=== PATIENT | female | born 2000 | race Caucasian/White ===

== ENCOUNTER → 2022-01-18 13:10 | Outpatient (CLI) | payer OTHER, SELFPAY | PROVIDERS: Visit Provider Obstetrics & Gynecology | DX: N39.0 Urinary tract infection, site not specified (principal); B96.20 Unspecified Escherichia coli [E. coli] as the cause of diseases classified elsewhere | CPT/HCPCS: 87086; 87088; 87186 ==

== ENCOUNTER 2022-03-14 03:57 | Emergency (ER) | payer OTHER, SELFPAY ==
[2022-03-14 04:00] VITALS: BP 138/84; PULSE 71; RESP 16; TEMP 36.9; O2SAT 98; BMI 34.7
--- NOTE | 2022-03-14 04:10 | ECG_ITS ---
APPROVED REPORT Exam: Resting ECG HR:70 bpm ECG Measurements Heart Rate 70 AXES WA 153 P 3 QRSd 73 QRS 61 QT 363 T 52 QTc 384 Conclusion SINUS RHYTHM WITH SINUS ARRHYTHMIA NORMAL ECG UNCONFIRMED REPORT Electronically signed by : Alonso Fiore MD 03/14/2022 17:47:18
[2022-03-14 04:16] VITALS: BMI 36.2
[2022-03-14 04:16] LABS: Microscopic, Urine URINE MICROSCOPIC (MICROSCOPIC)
[2022-03-14 04:18] LABS: Appearance,Urine CLOUDY (Clear); Bilirubin,Urine Negative (Negative); Blood, Urine Negative (Negative); Color,Urine YELLOW (Yellow); Glucose,Urine (UA) Negative (Negative); Ketones,Urine Negative (Negative); Leukocyte Esterase,Urine Negative (Negative); Nitrate,Urine Negative (Negative); POC Glucose,Bedside 107 (70-110); Protein,Urine Negative (Negative); Specific Gravity, Urine >= 1.030 (1.005-1.030); Urobilinogen,Urine 0.2 EU/dl (0.2)
[2022-03-14 04:20] LABS: Coronavirus 19, PCR Not Detected (NotDetected); Influenza A, PCR Not Detected (NotDetected); Influenza B, PCR Not Detected (NotDetected)
--- NOTE | 2022-03-14 04:26 | CT_ITS ---
PROCEDURE INFORMATION: Exam: CT Head Without Contrast Exam date and time: 03/14/2022 4:39 AM Age: 21 years old Clinical indication: Injury or trauma; Fall; Blunt trauma (contusions or hematomas); Without loss of consciousness; Additional info: Fall hit back of head TECHNIQUE: Imaging protocol: Computed tomography of the head without contrast. Radiation optimization: All CT scans at this facility use at least one of these dose optimization techniques: automated exposure control; mA and/or kV adjustment per patient size (includes targeted exams where dose is matched to clinical indication); or iterative reconstruction. COMPARISON: No relevant prior studies available. FINDINGS: Brain: Normal. No hemorrhage. Unremarkable white matter. No mass effect. Cerebral ventricles: No ventriculomegaly. Paranasal sinuses: Visualized sinuses are unremarkable. No fluid levels. Mastoid air cells: Visualized mastoid air cells are well aerated. Bones/joints: Unremarkable. No acute fracture. Soft tissues: Unremarkable. IMPRESSION: No acute intracranial process.
[2022-03-14 04:27] LABS: Amorphous Sediment,Urine Trace /lpf; Squamous Epithelial Cell,Urine 50-100 #/hpf (0-5); Urine Pregnancy, HCG Qual. Negative (Negative); WBC,Urine Occasional #/hpf (0-3)
[2022-03-14 04:31] LABS: Basophils # 0.1 K/mm3 (0-0.2); Basophils % 1.6 % (0.1-2.0); Eosinophils # 0.3 K/mm3 (0.0-0.4); Eosinophils % 3.6 % (0.1-12.0); Hematocrit 43.8 % (37.0-47.0); Hemoglobin 15.2 g/dL (12.2-16.2); Lymphocytes # 2.1 K/mm3 (0.7-4.5); Mean Corpuscular HGB Conc 34.6 g/dL (31.8-35.4); Mean Corpuscular Hemoglobin 30.4 pg (27.0-31.2); Mean Corpuscular Volume 87.6 fl (81-99); Mean Platelet Volume 8.4 fl (7.4-10.4); Monocytes # 0.4 K/mm3 (0.1-1.0); Monocytes % 6.2 % (1.7-9.3); Neutrophils # 4.2 K/mm3 (1.8-7.8); Neutrophils % 58.6 % (37.0-80.0); Platelet Count 348 K/mm3 (142-424); Red Cell Distribution Width 13.6 % (11.5-17.5); White Blood Count 7.1 K/mm3 (4.5-13.0)
[2022-03-14 04:36] LABS: Barbiturates Screen,Urine Negative ng/ml (<200)
[2022-03-14 04:37] LABS: Benzodiazepines Screen,Urine Negative ng/ml (<200)
[2022-03-14 04:38] LABS: Amphetamine/Metha Screen,Urine Negative ng/ml (<1000); Cannabinoid Screen,Urine Positive ng/ml (<50)
[2022-03-14 04:38] LABS: Chloride 107 mmol/L (98-107)
[2022-03-14 04:39] LABS: Potassium 3.8 mmoL/L (3.5-5.1); Sodium 140 mmol/L (136-145)
[2022-03-14 04:39] LABS: Cocaine Screen,Urine Negative ng/ml (<300); Methadone Screen,Urine Negative ng/ml (<300)
[2022-03-14 04:40] LABS: Opiate Screen,Urine Negative ng/ml (<300)
--- NOTE | 2022-03-14 04:40 | HMH.EDWEAK ---
ED Disposition Clinical Impression: Weakness Fall Qualifiers: Encounter type: initial encounter Qualified Code(s): W19.XXXA - Unspecified fall, initial encounter Disposition: Home, Self-Care Condition on Discharge: Good Instructions: DI for Headache Additional Instructions: see pcp for follow up Referrals: Shaggy Umanzor MD [Primary Care Provider] - - Critical Care Critical Care Time: No Attestation: On 03/14/22, the high probability of a clinically significant, sudden or life threatening deterioration of the following system(s) required my full and direct attention, intervention and personal management. The time I documented below is in addition to time spent performing reported procedures but includes the following listed in this critical care notation. Medical Decision Making - Medical Records Medical records reviewed: Yes: I reviewed the patient's medical records. - Ian Inquiry Pt receiving controlled substance: No Vital Signs: 03/14/22 04:00 Temperature 98.5 F Temperature Source Oral Pulse Rate [Left] 71 Respiratory Rate 16 Blood Pressure [Right Arm] 138/84 Blood Pressure Mean [Right Arm] 102 02 Sat by Pulse Oximetry 98 Oxygen Delivery Method Room Air - Lab Data Lab results reviewed: Yes: I reviewed the patient's lab results. Lab Results 03/14/22 04:07: Urine Color Yellow, Urine Appearance Cloudy, Urine pH 5.0, Ur Specific Isabella >= 1.030, Urine Protein Negative, Urine Glucose (UA) Negative, Urine Ketones Negative, Urine Blood Negative, Urine Nitrate Negative, Urine Bilirubin Negative, Urine Urobilinogen 0.2, Ur Leukocyte Esterase Negative, Urine WBC Occasional, Ur Squamous Epith Cells 50-100, Amorphous Sediment Trace 03/14/22 04:07: Urine HCG, Qual Negative 03/14/22 04:07: POC Glucose 107 03/14/22 04:07: Urine Opiates Screen Negative, Urine Methadone Screen Negative, Ur Barbituates Screen Negative, Ur Phencyclidine Scrn Negative, Ur Amphetamines Screen Negative, U Benzodiazepines Scrn Negative, Urine Cocaine Screen Negative, U Marijuana (THC) Screen Positive H 03/14/22 04:15: SARS-CoV-2 (PCR) Not detected, Influenza A Untype (PCR) Not detected, Influenza Type B (PCR) Not detected 03/14/22 04:16: WBC 7.1, RBC 5.00, Hgb 15.2, Hct 43.8, MCV 87.6, MCH 30.4, MCHC 34.6, RDW 13.6, Plt Count 348, MPV 8.4, Neut % (Auto) 58.6, Lymph % (Auto) 30.0, Forrest % (Auto) 6.2, Eos % (Auto) 3.6, Baso % (Auto) 1.6, Neut # (Auto) 4.2, Lymph # (Auto) 2.1, Forrest # (Auto) 0.4, Eos # (Auto) 0.3, Baso # (Auto) 0.1 03/14/22 04:16: Sodium 140, Potassium 3.8, Chloride 107, Carbon Dioxide 20 L, Anion Gap 16.8 H, BUN 8, Creatinine 0.90, Estimated Creat Clear 143, Estimated GFR 81, Est GFR ( Amer) 98, Glucose 113 H, Calcium 9.9, Total Bilirubin 0.5, AST 26, ALT 23, Alkaline Phosphatase 79, Total Protein 8.0, Albumin 5.0, Globulin 3.0, Albumin/Globulin Ratio 1.7, Amylase 81 03/14/22 04:16: Lactate 2.8 H 03/14/22 04:16: Lipase 192, Procalcitonin 0.043 03/14/22 04:16: Plasma/Serum Alcohol 25 H Result diagrams: 03/14/22 04:16 03/14/22 04:16 Orders (Tests/Meds): ORDERS Category Date Time Status ESR [Erythrocyte Sedimentation Rate] Stat Lab 03/14/22 04:16 Received - Radiology Data #1 Image(s): Chest, Pelvis Image Reviewed: Yes I have reviewed radiologist's interpretation Preliminary Findings: No Fracture Seen - CT Data CT Scan: Head, C-Spine Time Received: 05:[address] Reviewed: Yes: I have viewed the radiologist's interpretation Preliminary Findings: No Fracture Seen - ECG Data Tracing #1 Normal Sinus Rhythm: Yes Ischemic changes: non-specific ST-T wave changes Medical Decision Narrative: uncertain as to cause of episode but stable exam and labs Weakness HPI - General Chief complaint: Weakness Stated complaint: BERMUDEZ, legs and feet going numb Time Seen by Provider: 03/14/22 04:15 Mode of Arrival: Wheelchair Source of Information: Patient, Medical Record Limitations: No Limitations
[2022-03-14 04:41] LABS: Phencyclidine Screen,Urine Negative ng/ml (<25)
[2022-03-14 04:41] LABS: Amylase 81 U/L (30-110); Anion Gap 16.8 mEq/L (5-15); Blood Urea Nitrogen 8 mg/dl (7-17); Carbon Dioxide 20 mmol/L (22.0-30.0); Creatinine Clearance Estimated 143 mL/min (50-200); Estimated Glomerular Filt Rate 81 ml/min (>60); GFR (African American) 98 ML/MIN (>60); Lactic Acid 2.8 mmol/L (0.7-2.1); Lipase 192 U/L (23-300)
[2022-03-14 04:42] LABS: Alanine Aminotransferase 23 U/L (12-78); Albumin/Globulin Ratio 1.7 (1.1-1.8); Alkaline Phosphatase 79 U/L (38-126); Aspartate Amino Transferase 26 U/L (14-36); Bilirubin,Total 0.5 mg/dl (0.2-1.3); Calcium 9.9 mg/dl (8.4-10.2); Glucose 113 mg/dl (74-100)
--- NOTE | 2022-03-14 04:42 | XR_ITS ---
PROCEDURE INFORMATION: Exam: XR Pelvis Exam date and time: 03/14/2022 4:41 AM Age: 21 years old Clinical indication: Injury or trauma; Fall; Blunt trauma (contusions or hematomas); Bilateral; Pelvic region; Additional info: Fall trauma protocols TECHNIQUE: Imaging protocol: XR pelvis. Views: 1 or 2 view. COMPARISON: No relevant prior studies available. FINDINGS: Bones/joints: Unremarkable. No acute fracture. Soft tissues: Unremarkable. IMPRESSION: No acute findings.
--- NOTE | 2022-03-14 04:42 | CT_ITS ---
PROCEDURE INFORMATION: Exam: CT Cervical Spine Without Contrast Exam date and time: 03/14/2022 4:43 AM Age: 21 years old Clinical indication: Injury or trauma; Fall; Blunt trauma; Injury details: Fell hit back of head TECHNIQUE: Imaging protocol: Computed tomography images of the cervical spine without contrast. Radiation optimization: All CT scans at this facility use at least one of these dose optimization techniques: automated exposure control; mA and/or kV adjustment per patient size (includes targeted exams where dose is matched to clinical indication); or iterative reconstruction. COMPARISON: CT HEAD/BRAIN WO CON 03/14/2022 4:39 AM FINDINGS: Bones/joints: No acute fracture. Normal alignment. Discs/Spinal canal/Neural foramina: No significant disc protrusion. No severe spinal canal stenosis. No significant neural foraminal narrowing. Lungs: Lung apices are normal. Soft tissues: Unremarkable. IMPRESSION: No acute process. No acute fracture or dislocation.
--- NOTE | 2022-03-14 04:42 | XR_ITS ---
PROCEDURE INFORMATION: Exam: XR Chest Exam date and time: 03/14/2022 4:42 AM Age: 21 years old Clinical indication: Injury or trauma; Fall; Blunt trauma (contusions or hematomas); Patient HX: Fell hit back of head; Additional info: Fall trauma protocols TECHNIQUE: Imaging protocol: XR of the chest. Views: 4 or more views. COMPARISON: No relevant prior studies available. FINDINGS: Lungs: Unremarkable. No consolidation. Pleural spaces: Unremarkable. No pleural effusion. No pneumothorax. Heart/Mediastinum: Unremarkable. No cardiomegaly. Bones/joints: Unremarkable. IMPRESSION: No acute findings.
[2022-03-14 04:52] LABS: Ethyl Alcohol 25 mg/dl (0-10)
[2022-03-14 04:59] LABS: Procalcitonin 0.043 ng/mL (0.0-2.0)
[2022-03-14 05:26] VITALS: BP 138/64; PULSE 78; RESP 14; TEMP 36.9; O2SAT 98
[2022-03-14 05:28] LABS: Erythrocyte Sedimentation Rate 16 mm/hr (0-20)
[2022-03-14 08:22] LABS: Reflex Lactic Add Lactic Reflex
== END 2022-03-14 05:56 | disposition home or self-care (01) ==
PROVIDERS: Emergency Provider Emergency Medicine; PCP Emergency Medicine
DX: R53.83 Other fatigue (principal); R20.2 Paresthesia of skin; R51.9 Headache, unspecified; W19.XXXA Unspecified fall, initial encounter; Y92.009 Unspecified place in unspecified non-institutional (private) residence as the place of occurrence of the external cause
CPT/HCPCS: 70450; 71045; 72125; 72170; 80053; 80305; 81001; 81025; 82150; 82962; 83605; 83690; 84145; 85025; 85651; 93005; 99284; C9803; U0003; U0005

== ENCOUNTER 2022-09-13 13:48 | Emergency (ER) | payer OTHER, SELFPAY ==
[2022-09-13 14:30] VITALS: BP 112/76; PULSE 78; RESP 18; TEMP 37.2; O2SAT 98; BMI 31.1
[2022-09-13 14:42] LABS: UTC Strep Screen (Rapid) Negative (Negative)
[2022-09-13 14:43] LABS: UTC Influenza A Antigen Negative (Negative); UTC Influenza B Antigen Negative (Negative)
--- NOTE | 2022-09-13 14:45 | EXP.UTC ---
Discharge Plan Disposition Patient Disposition: Home, Self-Care Condition: Good Prescriptions Prescriptions: No Action No Known Home Medications Referrals Follow up/Referrals: Shaggy Umanzor MD [Primary Care Provider] - See instructions Activity Restrictions/Add. Instructions Additional Instructions/Restrictions: *Monitor Temp, Over the counter Motrin or Tylenol as directed/as needed Tylenol every 4 hours and Motrin every 6 hours (as long as your family doctor has told you that you can take it) for fever or pain. and straight to ER if unable to lower temp less than 101.0 after medication given *Warm salt water gargles may help to soothe the throat *Throat Lozenges? *Warm fluids like tea with honey may help to soothe the throat? *Sleep elevated *Humidifier/Vaporizer Follow up IMMEDIATELY for new or worsening symptoms or no Noticeable improvement over the next 48-72 hours. 911 for difficulty breathing or swallowing Clinical Impressions Clinical Impression: Viral syndrome Stand Alone Forms Stand Alone Forms: Work/School Release Instructions Patient Instructions: DI for Fever (Symptom) -- Adult Discharge ED Provider: Carmela March [facility] General Stated complaint: nausea, wants covid and flu test Time Seen by Provider: 09/13/22 14:45 History of Present Illness Provider Complaint: Patient states that she woke up this morning and had a fever States that work is making her get a flu and COVID before she can come back to work Related Data Home Medications Medication Instructions Recorded Confirmed No Known Home Medications 03/14/22 03/14/22 Allergies Allergy/AdvReac Type Severity Reaction Status Date / Time poison abad extract Allergy Verified 09/13/22 14:49 [facility] Medical History (Updated 09/13/22 @ 15:05 by Carmela March APRN) Thyroid disease Urinary tract infection Social History (Updated 09/13/22 @ 14:48 by Maida Pascal RN) Smoking Status: Never smoker alcohol intake: never substance use type: denies use current occupational status: student Travel in the last 8 weeks: None household members: family housing: house ROS Obtained: Yes All systems reviewed & no additional complaints except as documented and Yes Systems reviewed as appropriate & no additional complaints except as documented Constitutional Constitutional: Reports system reviewed and no additional complaints, except as documented, Reports as per HPI and Reports fever(s) ENT Ears, Nose, Mouth, and Throat: Reports system reviewed and no additional complaints, except as documented and Reports as per HPI Cardiovascular Cardiovascular: Reports system reviewed and no additional complaints, except as documented and Reports as per HPI Respiratory Respiratory: Reports system reviewed and no additional complaints, except as documented and Reports as per HPI Gastrointestinal Gastrointestingal: Reports system reviewed and no additional complaints, except as documented and as per HPI Physical Exam General General appearance: alert and in no apparent distress Respiratory Respiratory exam: Present normal lung sounds bilaterally; Absent respiratory distress or wheezes Cardiovascular Cardiovascular exam: Present regular rate, normal rhythm and normal heart sounds Neurological Exam Neurological exam: Present alert, oriented X3 and normal gait Medical Decision Making Ian Inquiry Pt receiving controlled substance: No Ian was queried for this patient: No Lab Data Lab results reviewed: Yes I reviewed the patient's lab results. Lab Results 09/13/22 14:34: Influenza Type A Ag Negative, Influenza Type B Ag Negative 09/13/22 14:34: Strep Scn Rapid Clinic Negative Orders (Tests/Meds): ORDERS Category Date Time Status Covid-19 Nasal PCR ([facility]) Routine Lab 09/13/22 14:34 Ordered Strep Screen Confirmation Stat Micro 09/13/22 14:34 Received
[2022-09-13 15:07] VITALS: BP 112/76; PULSE 78; RESP 18; TEMP 37.2; O2SAT 98
== END 2022-09-13 15:19 | disposition home or self-care (01) ==
PROVIDERS: Emergency Provider Nurse Practitioner; PCP Emergency Medicine
DX: B34.9 Viral infection, unspecified (principal)
CPT/HCPCS: 99212; 87804; 87880; C9803; U0003; U0005

== ENCOUNTER 2022-10-07 14:47 | Emergency (ER) | payer OTHER, SELFPAY ==
[2022-10-07 15:05] VITALS: BP 132/78; PULSE 86; RESP 18; TEMP 37; O2SAT 98; BMI 30.7
[2022-10-07 15:21] LABS: UTC Strep Screen (Rapid) Negative (Negative)
--- NOTE | 2022-10-07 15:45 | EXP.UTC ---
Discharge Plan Disposition Patient Disposition: Home, Self-Care Condition: Good Prescriptions Prescriptions: New prednisone [prednisone] 20 mg tablet 20 mg PO BID 5 Days Qty: 10 0RF amoxicillin-pot clavulanate 875-125 mg Tablet 1 tab PO Q12H Qty: 20 0RF Referrals Follow up/Referrals: Shaggy Umanzor MD [Primary Care Provider] - See instructions Clinical Impressions Clinical Impression: Right otitis media, Acute tonsillitis Stand Alone Forms Stand Alone Forms: Work/School Release Discharge ED Provider: Lucero Ruvalcaba [facility] HPI General Stated complaint: Sore throat Mode of Arrival: Ambulatory Source of Information: Patient Limitations: No Limitations Time Seen by Provider: 10/07/22 15:46 Description of Symptoms (Recalled from Triage Doc. by RN): PATIENT C/O SORE THROAT, COUGH WITH MUCUS, AND FATIGUE X 4 DAYS HEENT Symptoms (Recalled from RN notes): Yes Resp Symptoms (Recalled from RN notes): Yes Skin Symptoms (Recalled from RN notes): No MS Symptoms (Recalled from RN notes): No Functional Status (Recalled from RN notes): WNL History of Present Illness Provider Complaint: Sore throat, swollen tonsils, productive cough, fatigue X 4 days. No fever. Onset (ago): day(s) (4) Relieving factors: none Exacerbating factors: none Associated symptoms: denies other symptoms Treatments prior to arrival: NSAID Related Data Previous Rx's Medication Instructions Recorded amoxicillin 875 mg-potassium 1 tab PO Q12H #20 tabs 10/07/22 clavulanate 125 mg tablet prednisone 20 mg tablet 20 mg PO BID 5 days #10 tabs 10/07/22 Allergies Allergy/AdvReac Type Severity Reaction Status Date / Time poison abad extract Allergy Verified 09/13/22 14:49 Worker's Comp Is this a Worker's Comp case?: No [facility] Disclaimer: The information contained in this section may have been updated after the patient was seen, as this information can be updated by other users. Medical History (Updated 10/07/22 @ 15:51 by YAMILA Montero) Thyroid disease Urinary tract infection Social History (Updated 10/07/22 @ 15:16 by Maida Pascal RN) Smoking Status: Never smoker alcohol intake: never substance use type: denies use current occupational status: student Travel in the last 8 weeks: None household members: family housing: house ROS Obtained: Yes All systems reviewed & no additional complaints except as documented Constitutional Constitutional: Reports fatigue and Denies fever(s) ENT Ears, Nose, Mouth, and Throat: Reports nasal congestion and Reports sore throat Respiratory Respiratory: Reports cough Endocrine Endocrine: Reports fatigue Physical Exam General General appearance: alert and in no apparent distress Head Head exam: atraumatic, normocephalic and normal inspection Eye Eye exam: Present normal appearance, PERRL and EOMI ENT ENT exam: Present normal exam, mucous membranes moist and normal external ear exam Expanded ENT Exam TM/Canal exam: Right TM: erythema and bulging Throat exam: Present tonsillar erythema and tonsillomegaly Neck Neck exam: Present normal inspection, full ROM and trachea midline; Absent meningismus or lymphadenopathy Chest Chest inspection: Present normal inspection and symmetric chest wall rise; Absent tenderness Respiratory Respiratory exam: Present normal lung sounds bilaterally; Absent respiratory distress Cardiovascular Cardiovascular exam: Present regular rate and normal rhythm; Absent JVD Abdominal Exam Abdominal exam: Present soft and normal bowel sounds; Absent distention, tenderness or guarding Extremities Exam Extremities exam: Present normal inspection, full ROM and normal capillary refill; Absent calf tenderness Back Exam Back exam: Present normal inspection; Absent tenderness Neurological Exam Neurological exam: Present alert and oriented X3 Psychiatric Psychiatric exam: Present normal affect and normal mood Skin Skin exam: Pres
[2022-10-07 15:55] VITALS: BP 132/78; PULSE 86; RESP 18; TEMP 37; O2SAT 98
== END 2022-10-07 16:00 | disposition home or self-care (01) ==
PROVIDERS: Emergency Provider Physician Assistant; PCP Emergency Medicine
DX: J03.90 Acute tonsillitis, unspecified (principal); H66.91 Otitis media, unspecified, right ear
CPT/HCPCS: 87880; 99212; G0463

== ENCOUNTER 2022-10-09 08:58 | Emergency (ER) | payer OTHER, SELFPAY ==
[2022-10-09 08:59] VITALS: BP 126/92; PULSE 87; RESP 17; TEMP 36.7; O2SAT 98; BMI 33.6
--- NOTE | 2022-10-09 09:19 | XR_ITS ---
PROCEDURE INFORMATION: Exam: XR Chest Exam date and time: 10/09/2022 9:14 AM Age: 21 years old Clinical indication: Pain; Chest pressure; Additional info: Chest pain TECHNIQUE: Imaging protocol: Radiologic exam of the chest. Views: 2 views. COMPARISON: CR XR CHEST AP 03/14/2022 4:42 AM FINDINGS: Lungs: No focal airspace disease. Pleural spaces: Unremarkable. No pleural effusion. No pneumothorax. Heart/Mediastinum: Cardiomediastinal silhouette is within normal limits. Bones/joints: Unremarkable. IMPRESSION: No acute cardiopulmonary abnormality.
--- NOTE | 2022-10-09 09:21 | ECG_ITS ---
APPROVED REPORT Exam: Resting ECG HR:61 bpm ECG Measurements Heart Rate 61 AXES WA 147 P 0 QRSd 77 QRS 68 QT 387 T 63 QTc 391 Conclusion SINUS RHYTHM WITH MARKED SINUS ARRHYTHMIA BORDERLINE ECG UNCONFIRMED REPORT Electronically signed by : Alonso Fiore MD 10/10/2022 07:18:01
[2022-10-09 09:28] LABS: Basophils # 0.1 K/mm3 (0-0.2); Basophils % 1.6 % (0.1-2.0); Chloride 104 mmol/L (98-107); Eosinophils # 0.1 K/mm3 (0.0-0.4); Eosinophils % 1.6 % (0.1-12.0); Hematocrit 44.6 % (37.0-47.0); Hemoglobin 14.8 g/dL (12.2-16.2); Lymphocytes # 1.3 K/mm3 (0.7-4.5); Lymphocytes % 26.6 % (10-50); Mean Corpuscular HGB Conc 33.2 g/dL (31.8-35.4); Mean Corpuscular Hemoglobin 29.3 pg (27.0-31.2); Mean Corpuscular Volume 88.2 fl (81-99); Mean Platelet Volume 7.8 fl (7.4-10.4); Monocytes # 0.4 K/mm3 (0.1-1.0); Monocytes % 9.1 % (1.7-9.3); Neutrophils # 2.9 K/mm3 (1.8-7.8); Platelet Count 291 K/mm3 (142-424); Red Blood Count 5.06 M/mm3 (4.20-5.40); Red Cell Distribution Width 13.3 % (11.5-17.5); Sodium 139 mmol/L (136-145); White Blood Count 4.8 K/mm3 (4.5-13.0)
[2022-10-09 09:29] LABS: Potassium 3.8 mmoL/L (3.5-5.1)
[2022-10-09 09:31] LABS: Blood Urea Nitrogen 5 mg/dl (7-17); Creatinine Clearance Estimated 137 mL/min (50-200); Estimated Glomerular Filt Rate 81 ml/min (>60); GFR (African American) 98 ML/MIN (>60)
[2022-10-09 09:32] LABS: Anion Gap 11.8 mEq/L (5-15); Calcium 9.7 mg/dl (8.4-10.2); Carbon Dioxide 27 mmol/L (22.0-30.0); Glucose 96 mg/dl (74-100)
[2022-10-09 09:44] LABS: Troponin I < 0.01 ng/ml (0.00-0.034)
--- NOTE | 2022-10-09 10:07 | HMH.EDGENADL ---
Discharge Plan Disposition Patient Disposition: Home, Self-Care Condition: Good Prescriptions Prescriptions: No Action prednisone [prednisone] 20 mg tablet 20 mg PO BID 5 Days Qty: 10 0RF amoxicillin-pot clavulanate 875-125 mg Tablet 1 tab PO Q12H Qty: 20 0RF Referrals Follow up/Referrals: Shaggy Umanzor MD [Primary Care Provider] - See instructions Activity Restrictions/Add. Instructions Additional Instructions/Restrictions: Additional instructions for CHEST PAIN: See your physician as soon as possible for further evaluation. Return immediately if worsening chest pain, vomiting, shortness of breath, fever, coughing of blood. Clinical Impressions Clinical Impression: Chest pain Instructions Patient Instructions: DI for Atypical Chest Pain Discharge ED Provider: Tej Sood General Adult HPI General Chief complaint: Chest Pain Stated complaint: lightheaded,SOA,sore throat Time Seen by Provider: 10/09/22 10:10 Mode of Arrival: Ambulatory Limitations: No Limitations Description of Symptoms (Recalled from ER Triage Doc. by RN): PT REPORTS SHE WAS LIGHTHEADED, SWEATING AND HAD CHEST PRESSURE AT WORK. FSBS 70 AND HAD ELEVATED BLOOD PRESSURE. DENIES CHEST PAIN AT THIS TIME. 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 Her chest felt heavy and she felt short of breath. She says that she checked her blood sugar and it was 70, she says her blood pressure was reported to be elevated but she does not know what the reading was. She says symptoms lasted 40 minutes and then went away. She now feels back to her baseline. She has no known cardiac or pulmonary chronic issues, but recently has had a URI with sore throat and bilateral earaches. Seen in the [facility] 2 days ago and she is currently on prednisone and Augmentin. Symptoms are improving, but throat is still sore. Minimal cough. Related Data Previous Rx's Medication Instructions Recorded amoxicillin 875 mg-potassium 1 tab PO Q12H #20 tabs 10/07/22 clavulanate 125 mg tablet prednisone 20 mg tablet 20 mg PO BID 5 days #10 tabs 10/07/22 Allergies Allergy/AdvReac Type Severity Reaction Status Date / Time poison abad extract Allergy Verified 09/13/22 14:49 [facility] Disclaimer: The information contained in this section may have been updated after the patient was seen, as this information can be updated by other users. Medical History (Updated 10/09/22 @ 10:20 by Tej Sood MD) Thyroid disease Urinary tract infection Social History (Updated 10/07/22 @ 15:16 by Maida Pascal RN) Smoking Status: Never smoker alcohol intake: never substance use type: denies use current occupational status: student Travel in the last 8 weeks: None household members: family housing: house ROS Obtained: Yes Systems reviewed as appropriate & no additional complaints except as documented Constitutional Constitutional: Denies fever(s), Denies headache(s) and Denies weakness ENT Ears, Nose, Mouth, and Throat: Reports otalgia, Denies headache(s), Denies nasal discharge and Reports sore throat Cardiovascular Cardiovascular: Reports chest pain Respiratory Respiratory: Reports shortness of breath and Reports cough Gastrointestinal Gastrointestingal: Denies abdominal pain, constipation, diarrhea or vomiting Genitourinary Female Genitourinary: Denies difficulty voiding, Denies dysuria and Denies flank pain Musculoskeletal Musculoskeletal: Denies numbness Neurologic Neurologic: Denies headache(s), Denies numbness and Denies weakness Physical Exam General General appearance: alert and in no apparent distress Head Head exam: atraumatic and normocephalic Eye Eye exam: Present normal appearance and EOMI ENT ENT exam: Present mucous membranes moist Expanded ENT Exam Comment: Tonsil
--- NOTE | 2022-10-09 10:11 | PC.NURSE ---
DR. BEAR AT BEDSIDE
[2022-10-09 10:25] VITALS: BP 116/79; PULSE 78; RESP 17; TEMP 36.6; O2SAT 98
== END 2022-10-09 10:25 | disposition home or self-care (01) ==
PROVIDERS: Emergency Provider Emergency Medicine; PCP Emergency Medicine
DX: R07.9 Chest pain, unspecified (principal); J02.9 Acute pharyngitis, unspecified; R42 Dizziness and giddiness; R06.02 Shortness of breath; R61 Generalized hyperhidrosis; R05.9 Cough, unspecified; E07.9 Disorder of thyroid, unspecified; Z79.52 Long term (current) use of systemic steroids; Z88.8 Allergy status to other drugs, medicaments and biological substances
CPT/HCPCS: 71046; 80048; 84484; 85025; 93005; 99284

== ENCOUNTER 2025-01-20 10:39 | Outpatient (CLI) | payer BC, SELFPAY ==
[2025-01-20 16:28] LABS: Microscopic, Urine URINE MICROSCOPIC (MICROSCOPIC)
[2025-01-20 16:38] LABS: Basophils # 0.1 K/mm3 (0-0.2); Basophils % 0.9 % (0.1-2.0); Eosinophils # 0.3 K/mm3 (0.0-0.4); Eosinophils % 2.7 % (0.1-12.0); Hematocrit 43.8 % (37.0-47.0); Hemoglobin 15.1 g/dL (12.2-16.2); Lymphocytes # 2.8 K/mm3 (0.7-4.5); Lymphocytes % 24.1 % (10-50); Mean Corpuscular HGB Conc 34.5 g/dL (31.8-35.4); Mean Corpuscular Hemoglobin 29.5 pg (27.0-31.2); Mean Corpuscular Volume 85.7 fl (81-99); Mean Platelet Volume 9.3 fl (7.4-10.4); Monocytes # 0.7 K/mm3 (0.1-1.0); Monocytes % 5.6 % (1.7-9.3); Neutrophils # 7.8 K/mm3 (1.8-7.8); Neutrophils % 66.7 % (37.0-80.0); Platelet Count 318 K/mm3 (142-424); Red Blood Count 5.11 M/mm3 (4.20-5.40); Red Cell Distribution Width 12.3 % (11.5-17.5); White Blood Count 11.7 K/mm3 (4.8-10.8)
[2025-01-20 16:46] LABS: Appearance,Urine CLEAR (Clear); Bilirubin,Urine Negative (Negative); Blood, Urine Negative (Negative); Color,Urine YELLOW (Yellow); Glucose,Urine (UA) Negative (Negative); Ketones,Urine Negative (Negative); Leukocyte Esterase,Urine Negative (Negative); Nitrate,Urine Negative (Negative); Protein,Urine Negative (Negative); Specific Gravity, Urine 1.025 (1.005-1.030); Urobilinogen,Urine 0.2 EU/dl (0.2)
[2025-01-20 17:09] LABS: Bacteria,Urine 2+ /lpf
[2025-01-20 17:26] LABS: Albumin Level 4.9 g/dl (3.5-5.0); Chloride 104 mmol/L (98-107)
[2025-01-20 17:27] LABS: Sodium 139 mmol/L (136-145)
[2025-01-20 17:29] LABS: Alanine Aminotransferase 21 U/L (12-78); Alkaline Phosphatase 67 U/L (38-126); Aspartate Amino Transferase 20 U/L (14-36); Bilirubin,Total 0.4 mg/dl (0.2-1.3); Blood Urea Nitrogen 10 mg/dl (7-17); Carbon Dioxide 23 mmol/L (22.0-30.0); Estimated Glomerular Filt Rate 90 ml/min (>60); GFR (African American) 109 ML/MIN (>60); Iron 85 ug/dL (37-170); Total Protein,Serum 7.4 g/dl (6.3-8.2)
[2025-01-20 17:30] LABS: Calcium 9.9 mg/dl (8.4-10.2); Chol/HDL Ratio 5.3 (1-3.5); Cholesterol 191 mg/dl (140-200); Globulin 2.5 g/dL (1.3-3.2); Glucose 80 mg/dl (74-100); HDL Cholesterol 36 mg/dl (40-60); Triglycerides 204 mg/dl (30-150); VLDL Cholesterol 41 mg/dL (0-40)
[2025-01-20 17:44] LABS: Direct LDL Cholesterol 109.09 mg/dL (100-129)
[2025-01-20 17:47] LABS: Total Iron Binding Capacity 366 ug/dL (265-497)
[2025-01-20 17:49] LABS: 25-OH Vitamin D, Total 25.2 ng/mL (30-100); Free T4 (Free Thyroxine) 1.22 ng/dl (0.78-2.19)
[2025-01-20 18:05] LABS: Thyroid Stimulating Hormone 5.58 uIU/mL (0.465-4.68)
[2025-01-20 18:11] LABS: HIV Combo NEGATIVE (Negative)
[2025-01-20 18:20] LABS: Vitamin B12 470 pg/mL (239-931)
[2025-01-20 18:21] LABS: Hepatitis C Ab Qual. W/ RFX NEGATIVE (Negative)
[2025-01-20 20:07] LABS: Erythrocyte Sedimentation Rate 11 mm/hr (0-20)
[2025-01-20 21:07] LABS: Hemoglobin A1C 5.1 % (4.0-6.0)
[2025-01-21 17:10] LABS: Deamidated Gliadin Abs, IgA 3 units (0-19); Deamidated Gliadin Abs, IgG 2 units (0-19); Tissue Transglutaminase IgA Ab <2 U/mL (0-3); Tissue Transglutaminase IgG Ab 2 U/mL (0-5)
[2025-01-22 08:13] LABS: Endomysial IgA Antibody Negative (Negative)
[2025-01-22 09:43] LABS: Reticulin IgA Antibody Negative titer (Neg:<1:2.5)
[2025-01-22 14:11] LABS: Saccharomyces cerevisiae, IgA <20.0 Units (0.0-24.9); Saccharomyces cerevisiae, IgG <20.0 Units (0.0-24.9)
[2025-01-29 17:11] LABS: F001-IgE Egg White <0.10 kU/L (Class 0); F002-IgE Milk <0.10 kU/L (Class 0); F003-IgE Codfish <0.10 kU/L (Class 0); F004-IgE Wheat <0.10 kU/L (Class 0); F010-IgE Sesame Seed <0.10 kU/L (Class 0); F013-IgE Peanut <0.10 kU/L (Class 0); F014-IgE Soybean <0.10 kU/L (Class 0); F024-IgE Shrimp <0.10 kU/L (Class 0); F256-IgE Walnut <0.10 kU/L (Class 0); F338-IgE Scallop <0.10 kU/L (Class 0)
== END 2025-01-20 23:59 | disposition home or self-care (01) ==
LOC: LAB.DROPOF 01-22 10:41
PROVIDERS: PCP Nurse Practitioner Family; Visit Provider Nurse Practitioner Family
DX: F41.9 Anxiety disorder, unspecified (principal); Z11.59 Encounter for screening for other viral diseases; J02.9 Acute pharyngitis, unspecified; R14.0 Abdominal distension (gaseous); R19.7 Diarrhea, unspecified; R53.83 Other fatigue; I10 Essential (primary) hypertension; G47.33 Obstructive sleep apnea (adult) (pediatric); E11.9 Type 2 diabetes mellitus without complications; R41.3 Other amnesia; R10.9 Unspecified abdominal pain; Z13.220 Encounter for screening for lipoid disorders; Z11.4 Encounter for screening for human immunodeficiency virus [HIV]
CPT/HCPCS: 80053; 80061; 81001; 82306; 82607; 82728; 83036; 83516; 83540; 83550; 84439; 84443; 85025; 85651; 86003; 86008; 86140; 86255; 86256; 86671; 86803; 87086; 87389